=== PATIENT | female | born 1935 | race Caucasian/White ===

== ENCOUNTER → 2019-10-19 14:41 | Outpatient (CLI) | payer OTHER, SELFPAY ==
--- NOTE | 2019-10-19 | DI.ECHO.S_ITS ---
[facility] +---------+ : : [address] : [address] : : : : [phone] : : : : Phone: [phone]+ Echocardiogram Report + + :Name: SANDY PELAYO Study Date: 10/19/2019 Height: 70 in : [id number] Weight: 152 lb : : Gender: Female BSA: 1.9 m2 : :: 1935 Age: 83 yrs BP: 142/80 mmHg: :Reason For Study: Dyspnea : :Ordering Physician: Meliza : :[place] Performed By: Mariann Morrison : :Referring: MELIZA ACUÑA : + + Interpretation Summary The left ventricle is normal in size. Left ventricular ejection fraction is estimated to be 65 +/- 5%. The right ventricle is normal in size and function. There is a pacemaker lead in the right ventricle. This is new. No significant valvular pathology seen. Mild atherosclerotic plaque(s) in the aortic arch. There is mild luminal irregularity and echogenicity in the abdominal aorta, suggestive of aortic atherosclerotic disease. Procedure: A two-dimensional transthoracic echocardiogram with color flow and Doppler was performed. The study quality was technically adequate. Comparison is made with the echocardiogram of 09/24/2017. The patient was in normal sinus rhythm during the exam. Left Ventricle: The left ventricle is normal in size. Proximal septal thickening is noted. There is no echo evidence for significant left ventricular outflow tract obstruction. There is no thrombus. Left ventricular ejection fraction is estimated to be 65 +/- 5%. There are no focal wall motion abnormalities. MV E/A: 0.76 Med Peak E' Greg: 3.4 cm/sec E/E' med: 17.8. Right Ventricle: The right ventricle is normal in size and function. There is a pacemaker lead in the right ventricle. Atria: Both atria are normal in size. Both atria have remained unchanged in size since the prior echo exam. There is a catheter/pacemaker lead seen in the right atrium. The interatrial septum is intact with no evidence for an atrial septal defect. Mitral Valve: There is mild mitral annular calcification. There is trace mitral regurgitation. Aortic Valve: The aortic valve is trileaflet. The aortic valve opens well. There is mild aortic valve sclerosis. There is no aortic valve stenosis. There is no aortic regurgitation. Tricuspid Valve: The tricuspid valve is normal in structure and function. There is trace tricuspid regurgitation. The right ventricular systolic pressure is estimated to be at least 28 mmHg based on an estimated right atrial pressure of 3 mm Hg. Pulmonic Valve: The pulmonic valve is not well seen, but is grossly normal. There is a trace or physiologic amount of pulmonic regurgitation. Great Vessels: The aortic root is normal size. The ascending aorta is normal in size. Mild atherosclerotic plaque(s) in the aortic arch. There is mild luminal irregularity and echogenicity in the abdominal aorta, suggestive of aortic atherosclerotic disease. The IVC is of normal diameter and collapses greater than 50% with a sniff. This suggests a low right atrial pressure of 3 mm Hg. Pericardium/ Pleura There is no pericardial effusion. There is an anterior echo-free space consistent with a fat pad. There is no pleural effusion. MMode/2D Measurements & Calculations LVIDd: 4.2 cm LVOT diam: 2.5 cm LVIDs: 2.3 cm Ao root diam: 3.2 cm FS: 45.8 % asc Aorta Diam: 3.1 cm IVSd: 1.0 cm Ao Arch Diam (Prox Trans): 2.4 cm LVPWd: 1.0 cm LV andrews. diameter/BSA (cm/m^2): 2.3 LV sys. diameter/BSA (cm/m^2): 1.2 LA A2 area: 17.8 cm2 RA long axis: 4.3 cm LA A4 area: 16.7 cm2 RA area: 13.8 cm2 LA length (vol): 5.0 cm RA vol: 37.5 ml LA vol: 50.5 ml RA : 20.2 ml/m2 LA vol index: 27.2 ml/m2 TAPSE: 2.0 cm Doppler Measurements & Calculations Ao V2 max: 200.2 cm/sec LVOT Max Greg: 127.7 cm/sec Ao V2 mean: 133.1 cm/sec LV V1 max P.5 mmHg Ao max P.0 mmHg LV V1 VTI: 30.0 cm Ao mean P.2 mmHg HEMANT(I,D): 3.5 cm2 Ao V2 VTI: 43.6 cm HEMANT(V,D): 3.2 cm2 sev ratio: 0.69 HEMANT indexed to BSA (cm^2/m^2): 1.9 MV E max greg: 59.8 cm/sec TR max greg: 251.4 cm/sec MV A max greg: 78.3 cm/sec TR max P.3 mmHg MV E/A: 0.76 PA V2 max: 63.5 cm/sec Med Peak E' Greg: 3.4 cm/sec PA V2 mean: 47.4 cm/sec E/E' med: 17.8 PA mean P.98 mmHg Lat Peak E' Greg: 4.5 cm/sec PA pr(Accel): 6.6 mmHg E/E' lat: 13.2 E/e' average: 15.5 MV dec time: 0.22 sec SV(LVOT): 152.0 ml Reading Physician:09:11 AM
== END ==
PROVIDERS: Referring Provider Internal Medicine; Visit Provider Internal Medicine Cardiovascular Disease
DX: R06.09 Other forms of dyspnea (principal); Z95.0 Presence of cardiac pacemaker
CPT/HCPCS: 93306